=== PATIENT | male | born 1990 | race Two or more races ===

== ENCOUNTER 2018-11-05 18:13 | Emergency (ER) | payer SELFPAY ==
[~2018-11-05] VITALS: Ht 182.9 cm; Wt 77.1 kg
== END 2018-11-05 18:24 | disposition left against medical advice (07) ==
LOC: ER 18:24
DX: J02.9 Acute pharyngitis, unspecified (principal); Z53.21 Procedure and treatment not carried out due to patient leaving prior to being seen by health care provider